=== PATIENT | female | born 1950 | race Caucasian/White ===

== ENCOUNTER 2018-02-09 11:16 | Day surgery (SDC) | payer OTHER ==
[~2018-02-09] VITALS: Ht 152.4 cm; Wt 54.0 kg
[~2018-02-09 11:16] MED LIST: B-121000 MCG PO; FOSAMAX70 MG PO; GABAPENTIN600 MG PO; IMITREX100 MG PO; LIPITOR20 MG PO; MAXIMUM D310000 UNIT PO; PREVACID30 M1 PO; TRAZODONE HCL50 MG PO; ZANTAC300 MG PO
== END 2018-02-09 14:00 | disposition home or self-care (01) ==
LOC: CIR.AMB 11:16 → O/R 13:41 → EDSTATUS 15:30 → SURH 15:30
DX: M48.061 Spinal stenosis, lumbar region without neurogenic claudication (principal); M51.36 Other intervertebral disc degeneration, lumbar region; M47.817 Spondylosis without myelopathy or radiculopathy, lumbosacral region